=== PATIENT | male | born 1965 | race African-American/Black ===

== ENCOUNTER 2024-12-14 22:18 | Emergency (ER) | payer SELFPAY ==
--- NOTE | ~2024-12-14 | CT_ITS ---
Noncontrast CT scan of the lumbar spine CLINICAL HISTORY: Chronic pain TECHNIQUE: Axial noncontrast imaging of the lumbar spine was performed. Sagittal and coronal reformat adilson images were constructed. Dose reduction technique was used on this scan by utilizing automated ex posure control and iterative reconstruction technique. The dose-length product (DLP) was 607.50 mGy-c m. FINDINGS: There is no fracture or subluxation lumbar spine. Vertebral bodies maintain normal height a nd alignment. Intervertebral disc spaces are relatively well-preserved. At L1-L2, there is no disc bulge or herniation. No spinal canal stenosis or neural foraminal narrowin g. At L2-L3, there is no significant disc bulge or herniation. No spinal canal stenosis or neural forami nal narrowing. L3-L4, there is no significant disc bulge or herniation. No spinal canal stenosis or neural foraminal narrowing. At L4-L5, there is minimal disc bulge. No spinal canal stenosis or definite neural foraminal narrowin g. At L5-S1, there is minimal disc bulge. No spinal canal stenosis or definite neural foraminal narrowin g. Paravertebral soft tissues are unremarkable. Small nonspecific lucencies are noted in the left iliac bone in particular. Impression: Minimal disc bulges at L4-L5 and L5-S1. Small nonspecific lucencies in the left iliac bone in particular. Consider bone scan or MR to further evaluate. Reviewed, dictated and finalized at [facility]. Impression: Minimal disc bulges at L4-L5 and L5-S1. Small nonspecific lucencies in the left iliac bone in particular. Consider bone scan or MR to further evaluate.
--- NOTE | ~2024-12-14 | CT_ITS ---
Noncontrast CT scan of the cervical spine Technique: Multiple contiguous axial [address] images of the cervical spine were obtained and rec onstructed in 2D sagittal and coronal planes on the acquisition scanner. Dose reduction technique was used on this scan by utilizing automated exposure control, adjustment of the mA and/or kV according to patient size. The dose-length product (DLP) was 607.50 mGy-cm. Clinical History: Pain Findings: No fractures or dislocations. Unremarkable visualized bony structures. The intervertebral disc spaces are preserved. No prevertebral soft tissue swelling. 2.2 cm round soft tissue mass probably present just inferior to the left thyroid lobe (axial image 81 , series 3). Impression: No fracture or subluxation of the cervical spine. 2.2 cm soft tissue mass probably just inferior to the left thyroid lobe. Consider additional workup i ncluding contrast enhanced neck CT and/or targeted ultrasound as indicated. Reviewed, dictated and finalized at [facility]. Impression: No fracture or subluxation of the cervical spine. 2.2 cm soft tissue mass probably just inferior to the left thyroid lobe. Consid er additional workup including contrast enhanced neck CT and/or targeted ultras ound as indicated.
[2024-12-14 22:45] VITALS: BP 107/78; PULSE 71; RESP 16; TEMP 36.8; O2SAT 96
[2024-12-15 02:00] VITALS: BP 114/85; PULSE 58; RESP 16; O2SAT 97
--- NOTE | 2024-12-15 03:34 | ED.NECK ---
HPI - Neck Pain/Injury General Chief Complaint: Back Pain/Injury Stated Complaint: back, neck pain (chronic) Time Seen by Provider: 12/15/24 03:01 Source: patient Mode of arrival: ambulatory Limitations: no limitations History of Present Illness HPI Narrative: Patient presents with report of neck and back pain. He notes that he is chronic pain in these areas including what he believes is a bulging disc at L4. Denies any abdominal pain or dysuria. Patient sees a pain specialist and has upcoming appointment on 01/09 with [facility]. He has been going for shots for 1 and half years. He receives cortisone in his neck and epiderm in his back. The latter seems to provide relief only for 72 hours. Patient states that he is sciatica but his back pain with radiation into his buttocks is greater on the left than the right although at times both are affected. Patient states he had a fall on 08/23/2023 but no interval trauma. He does have a spectrum of pain medications at home including Lyrica for neuropathy and Percocet. 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 Patient describes paresthesias described as pins and needle sensation in his calves and toes. He is on Lyrica for his neuropathy. He denies any saddle anesthesia. No incontinence of bowel but he does state that he would himself and states it wasn't because he didn't get to the bathroom in time. Denies IV drug use, fevers, chills, or anticoagulation. Has a history of prediabetes. 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 HEAD: Normocephalic, atraumatic. EYES: Non injected, non icteric ENT: Nares clear, no rhinorrhea or epistaxis. Gross auditory acuity intact. NECK: Supple. No meningismus. CHEST: Speaking in full sentences. No respiratory distress. HEART: Regular rate and rhythm. . ABDOMEN/AMITA: Soft, nondistended. Digital rectal exam performed which does demonstrate normal rectal tone and patient has sensation with this examination. Back: NO TENDERNESS TO PALPATION CERVICAL THORACIC or lumbar spine which are without obvious bony deformities or step-offs. No evidence of acute trauma. Curvature appears normal. EXTREMITIES: Normal range of motion. No lower extremity edema. Patient demonstrating flexion extension of the bilateral knees as well as flexion of the bilateral hips. SKIN: Warm, dry, no rash. NEURO: No focal deficits. Alert and oriented. Answering questions. Following commands. Normal speech without aphasia or dysarthria. Sensation intact in bilateral lower extremities. PSYCH: Congruent mood and affect. Course Vital Signs Vital signs: Vital Signs Temperature 98.2 F 12/14/24 22:45 Pulse Rate 71 12/14/24 22:45 Respiratory Rate 16 12/14/24 22:45 Blood Pressure 107/78 12/14/24 22:45 Pulse Oximetry 96 12/14/24 22:45 Oxygen Delivery Room Air 12/14/24 22:45 Temperature 97.7 F 12/15/24 03:36 Pulse Rate 55 L 12/15/24 07:19 Respiratory Rate 16 12/15/24 07:19 Blood Pressure 116/79 12/15/24 07:19 Pulse Oximetry 99 12/15/24 07:19 Oxygen Delivery Room Air 12/14/24 22:45 MDM - Neck Pain/Injury MDM Narrative Medical decision making narrative: Patient presents with back pain and neck pain. He notes that these are chronic issues and he sees Pain Specialists. Has been undergoing shots in both the neck and the back for the past 1 and half years. Next appointment is on 01/09/2025. 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 In the emergency department they are afebrile with vital signs within normal limits. Patient given analgesics medication. Back has no deformities, external skin changes, or signs of trauma. Curvature is within normal limits. No tenderness is noted on palpation of the spinous processes which are midline. Sensation to the lower extremities is normal bilaterally. DIFFERENTIAL DIAGNOSIS: Sciatica, herniated/bulging disc. Considered fracture, malignancy, infection (e.g. spinal epidural abscess), aortic/vascular, UTI, etc. Urine is concerning for urinary tract infection. No prior culture for comparison. Patient voids 200. His postvoid residual is 169 per RN. This is somewhat concerning though normal rectal tone. Patient reassessed at 6:35 a.m.. He states his pain had been 10/10 in severity and is now 3 or 4/10. Is witnessed moving his left leg and performing hip abduction adduction exercises. He states he tries to keep moving and stay active when his pain is improved we discussed that this is exactly the goal of multimodal pain management in the setting of musculoskeletal/neck and back pain. Per review of prescription monitoring database, patient had controlled substance filled more than 6 months ago. Patient is prescribed course of antibiotics for the evidence of urinary tract infection and he is prescribed short course of Valium to use as a muscle relaxer. Otherwise stable for discharge given strict emergency department return precautions. Lab Data Attestation: I reviewed the patient's lab results. 12/15/24 05:24 12/15/24 05:24 Labs: Lab Results 12/15/24 12/15/24 Range/Units 04:12 05:24 WBC 7.0 (4.5-10.0) K/mm3 RBC 5.08 (4.6-6.20) M/mm3 Hgb 14.5 (14.0-18.0) g/dL Hct 43.9 (42.0-52.0) % MCV 86.4 (80-100) fl MCH 28.5 (26-34) pg MCHC 33.0 (32-36) g/dl RDW 13.7 (11.5-14.5) % Plt Count 165 (150-375) k/mm3 MPV 10.4 (7.4-10.4) fl Immature Gran % (Auto) 0.3 (0-0.5) % Neut % (Auto) 55.7 (45.5-73.1) % Lymph % (Auto) 34.6 (18.3-44.2) % [place] % (Auto) 6.9 (2.6-8.5) % Eos % (Auto) 2.2 (0-4.4) % Baso % (Auto) 0.3 (0.2-1.2) % Lymph # (Auto) 2.41 (0.9-3.2) K/mm3 [place] # (Auto) 0.5 (0.1-0.6) K/mm3 Eos # (Auto) 0.2 (0-0.3) K/mm3 Baso # (Auto) 0.0 (0.0-0.1) K/mm3 Abs Immat Gran (auto) 0.02 (0.00-0.031) K/mm3 Absolute Neuts (auto) 3.9 (1.3-6.7) K/mm3 Absolute Nucleated RBC 0.000 (0.0-0.012) K/mm3 Nucleated RBC % 0.0 (0.0-0.2) % Sodium 139 (137-145) mmol/L Potassium 4.1 (3.4-5.0) mmol/L Chloride 106 (98-107) mmol/L Carbon Dioxide 25 (22-30) mmol/L Anion Gap 8 (4-12) mmol/L BUN 9 (9-20) mg/dL Creatinine 0.82 (0.7-1.3) mg/dL Estim Creat Clear Calc 104 ml/min Estimated GFR > 60 (59 - ) Glucose 120 H (65-110) mg/dL Calcium 9.0 (8.4-10.2) mg/dL Magnesium 2.1 (1.6-2.3) mg/dL Total Creatine Kinase 119 (55-170) U/L Urine Color Yellow (Yellow) Urine Appearance Clear (Clear) Urine pH 5.5 (5.0-9.0) Ur Specific [place] 1.022 (1.001-1.035) Urine Protein Negative (Negative) mg/dL Urine Glucose (UA) 3+ H (Negative) mg/dL Urine Ketones Negative (Negative) mg/dL Ur Blood (Man) Trace (Negative) Urine Nitrate Positive H (Negative) Urine Bilirubin Negative (Negative) Urine Urobilinogen 1.0 (<2.0) mg/dL Leukocyte Esterase Rfl 1+ H (Negative) SALLY/UL Urine RBC 0-2 (0-2) /hpf Urine WBC 21-50 H (0-3) /hpf Ur Squamous Epith Cells None seen (Few) /hpf Urine Bacteria 2+ H /hpf Urine Casts 0-2 Imaging Data Radiologist's impression: CT L SPine Stat Rad: No acute bony abnormality. Normal alignment. Mild disc bulge at L4-5 and L5-S1. incidental finding: small lucent lesions in the medial left iliac crest, nonspecific and probably benign. Follow-up bone scan for further evaluation as indicated Bibasilar atelectasis. CT C spine w/o contrast Stat Rad: No acute bony abnormality. Mild disc osteophytic bulges at C3-4 through C6-7. No evidence for spinal stenosis. Follow-up MR for further evaluation as indicated. Incidental findings: Small cervical lymph nodes, probably reactive. Lobular lesions of adjacent to the left lobe of the thyroid gland which may represent exophytic thyroid lesion. Recommend correlation with exam and follow-up ultrasound for further evaluation as indicated. Discharge Plan Discharge Clinical Impression: Urinary tract infection in male, Bulging disc, Nonallopathic lesion of hip region, Mild bibasilar atelectasis, Chronic sciatica, Chronic neck pain, Thyroid lesion Patient Disposition: Home Condition: Stable Instructions: Antibiotic Form, Urinary Tract Infection in Men (ED), Sciatica (ED), Thyroid Nodules (ED), Lower Back Exercises (ED), Atelectasis (ED), Chronic Neck Pain (DC) Additional Instructions: You had evidence of a mild disc bulge at L4-L5 and L5-S1. Also you had incidental finding: small lucent lesions in the medial left iliac crest, nonspecific and probably benign. Follow-up bone scan for further evaluation as indicated Also mild disc osteophytic bulges at C3-4 though C6-7. FOllow up MR for further evaluation as indicated. There was also a small lesion near your left thyroid gland. Recommend outpatient follow up ultrasound. All of these findings can be compared to your previous imaging when you return home. Follow-up with your primary care physician and keep your upcoming a pain specialist appointment. You have evidence of urinary tract infection. Fill the prescription for the antibiotics and take the whole course. Return to the ER if you have increased pain in your back, you develop lower extremity weakness/numbness/paralysis, you have numbness or tingling in your private parts, or you are unable to control your ability to urinate/stool. Continue taking your pain medications as prescribed. You can supplement with the medication that works as a muscle relaxer before you sleep. As we discussed, the goal is to balance some rest with maintaining staying active and moving to perform stretching/strengthening exercises Patient Language: Mauritian Prescriptions: New cefpodoxime 200 mg tablet 200 mg PO BID 12 Days Qty: 24 0RF Rx Instructions: must administer with a meal/food diazepam [Valium] 2 mg tablet 2 mg PO HS PRN (Reason: muscle spasm) Qty: 7 0RF Follow-up/Referrals: PHYSICIAN,[facility] [employer] [Primary Care Provider] - Stand Alone Forms: Work/School Release IP Time of Disposition: 06:58
[2024-12-15 03:36] VITALS: BP 116/79; PULSE 57; RESP 16; TEMP 36.5; O2SAT 99
[2024-12-15] MEDS: HYDROmorphone HCL INJ (*CRX) 2 MG/ML VIAL 1 MG IM (04:18)
[2024-12-15 04:34] LABS: Add Urine Microscopic? YES; Appearance Urine Clear (Clear); Bacteria Urine 2+ /hpf; Bilirubin Urine Negative (Negative); Blood Urine Trace (Negative); Color Urine Yellow (Yellow); Glucose Urine UA 3+ mg/dL (Negative); Ketones Urine Negative (Negative); Leukocyte Esterase Ur 1+ LEU/UL (Negative); Nitrate Urine Positive (Negative); Non Pathogenic Casts 0-2; Protein Urine Negative (Negative); RBC Urine 0-2 /hpf (0-2); Specific Grav Ur 1.022 (1.001-1.035); Squamous Epithelial Cell Urine None Seen /hpf (Few); WBC Urine 21-50 /hpf (0-3); pH Urine 5.5 (5.0-9.0)
[2024-12-15 05:36] LABS: Basophils Percent Auto 0.3 % (0.2-1.2); Eosinophils Absolute Auto 0.2 K/mm3 (0-0.3); Eosinophils Percent Auto 2.2 % (0-4.4); Hematocrit 43.9 % (42.0-52.0); Hemoglobin 14.5 g/dL (14.0-18.0); Immature Granulocyte Absolute 0.02 K/mm3 (0.00-0.031); Immature Granulocyte Percent A 0.3 % (0-0.5); Lymphocytes Absolute Auto 2.41 K/mm3 (0.9-3.2); Lymphocytes Percent Auto 34.6 % (18.3-44.2); Mean Corpuscular Hemoglobin 28.5 pg (26-34); Mean Corpuscular Volume 86.4 fl (80-100); Mean Platelet Volume 10.4 fl (7.4-10.4); Monocytes Absolute Auto 0.5 K/mm3 (0.1-0.6); Monocytes Percent Auto 6.9 % (2.6-8.5); Neutrophils Absolute Auto 3.9 K/mm3 (1.3-6.7); Neutrophils Percent Auto 55.7 % (45.5-73.1); Platelet Count Result 165 k/mm3 (150-375); Red Blood Count 5.08 M/mm3 (4.6-6.20); Red Cell Distribution Width 13.7 % (11.5-14.5)
[2024-12-15 06:10] LABS: Anion Gap 8 mmol/L (4-12); Blood Urea Nitrogen 9 mg/dL (9-20); Carbon Dioxide 25 mmol/L (22-30); Chloride 106 mmol/L (98-107); Creatine Kinase 119 U/L (55-170); Estimated CRCL calculation 104 ml/min; Estimated Glomerular Filt Rate > 60; Glucose 120 mg/dL (65-110); Magnesium 2.1 mg/dL (1.6-2.3); Potassium 4.1 mmol/L (3.4-5.0); Sodium 139 mmol/L (137-145)
[2024-12-15 06:16] VITALS: BP 107/79; PULSE 58; RESP 16; O2SAT 98
[2024-12-15 07:19] VITALS: BP 116/79; PULSE 55; RESP 16; O2SAT 99
== END 2024-12-15 07:29 | disposition home or self-care (01) ==
PROVIDERS: Emergency Provider Student in an Organized Health Care Education/Training Program
DX: N39.0 Urinary tract infection, site not specified (principal); M51.369 Other intervertebral disc degeneration, lumbar region without mention of lumbar back pain or lower extremity pain; M51.379 Other intervertebral disc degeneration, lumbosacral region without mention of lumbar back pain or lower extremity pain; M54.42 Lumbago with sciatica, left side; M54.41 Lumbago with sciatica, right side; M54.2 Cervicalgia; G89.29 Other chronic pain; E07.9 Disorder of thyroid, unspecified; M89.9 Disorder of bone, unspecified; J98.11 Atelectasis; R73.03 Prediabetes
CPT/HCPCS: 36415; 72125; 72131; 80048; 81001; 82550; 83735; 85025; 87086; 87186; 96372; 99284; J1171